=== PATIENT | male | born 1990 ===

== ENCOUNTER 2021-02-12 08:27 | Emergency (ER) | payer MEDICAID, OTHER ==
[~2021-02-12] VITALS: Ht 165.1 cm; Wt 77.1 kg
[2021-02-12 09:00] VITALS: BP 146/87
== END 2021-02-12 10:02 | disposition left against medical advice (07) ==
LOC: EDBD 08:27 → ER 08:27
DX: F19.90 Other psychoactive substance use, unspecified, uncomplicated (principal)